=== PATIENT | female | born 1985 | race Caucasian/White ===

== ENCOUNTER 2019-10-14 19:15 | Emergency (ER) | payer BC ==
[~2019-10-14] VITALS: Ht 157.5 cm; Wt 97.5 kg
[2019-10-14] MEDS ORDERED: Cyclobenzaprine5 MG PO (21:23)
[2019-10-14] MEDS ORDERED: IBUP400 PO (21:23)
== END 2019-10-14 22:09 | disposition home or self-care (01) ==
LOC: ER 19:15
DX: M54.5 Low back pain (principal); F17.210 Nicotine dependence, cigarettes, uncomplicated; Z88.5 Allergy status to narcotic agent
CPT/HCPCS: 96372; 99283-25; J1885

== ENCOUNTER 2020-06-27 11:42 | Emergency (ER) | payer OTHER ==
[~2020-06-27] VITALS: Ht 154.9 cm; Wt 104.3 kg
[~2020-06-27 11:42] MED LIST: Cyclobenzaprine5 MG PO; IBUP400 PO
== END 2020-06-27 13:15 | disposition home or self-care (01) ==
LOC: ER 11:42
DX: S61.012A Laceration without foreign body of left thumb without damage to nail, initial encounter (principal); Z23 Encounter for immunization; Z88.5 Allergy status to narcotic agent; Z79.899 Other long term (current) drug therapy; W26.8XXA Contact with other sharp object(s), not elsewhere classified, initial encounter
CPT/HCPCS: 12001; 90471; 90714; 99282-25

== ENCOUNTER 2020-08-24 11:15 | Emergency (ER) | payer OTHER ==
[~2020-08-24] VITALS: Ht 154.9 cm; Wt 104.3 kg
[2020-08-24 12:31] LABS: BASOPHILS ABSOLUTE AUTO 0.03 K/mm3 (0.00-0.23); BASOPHILS PERCENT AUTO 0 % (0-2); EOSINOPHILS ABSOLUTE AUTO 0.04 K/mm3 (0.00-0.68); EOSINOPHILS PERCENT AUTO 1 % (0-6); Hematocrit 43.4 % (33.0-51.0); Hemoglobin 14.4 g/dL (11.5-16.0); IMMATURE GRAN ABSOLUTE AUTO 0.02 K/mm3 (0.00-0.10); IMMATURE GRAN PERCENT AUTO 0 % (0-1); LYMPHOCYTES ABSOLUTE AUTO 1.74 K/mm3 (0.84-5.20); LYMPHOCYTES PERCENT AUTO 24 % (21-46); MONOCYTES ABSOLUTE AUTO 0.35 K/mm3 (0.16-1.47); MONOCYTES PERCENT AUTO 5 % (4-13); Mean Corpuscular HGB 29.4 pg (26.0-34.0); Mean Corpuscular HGB Conc 33.2 g/dL (31.5-36.5); Mean Corpuscular Volume 89 fL (80-100); Mean Platelet Volume 10.9 fL (9.1-12.4); NEUTROPHILS ABSOLUTE AUTO 5.03 K/mm3 (1.96-9.15); NEUTROPHILS PERCENT AUTO 70 % (41-73); Platelet Count 234 K/mm3 (150-400); RDW Coefficient Variation 14.4 % (11.7-14.2); RDW Standard Deviation 46.4 fL (35.1-46.3); White Blood Cell Count 7.21 K/mm3 (4.00-11.30)
[2020-08-24 12:42] LABS: Alanine Aminotransfer (ALT/SGP 28 U/L (12-78); Albumin, Blood 3.7 g/dL (3.4-5.0); Albumin/Globulin Ratio 0.9 (0.8-1.8); Alk Phos 79 U/L (50-136); Anion Gap 4 mmol/L (6-16); Aspartate Aminotrans (AST/SGOT 17 U/L (12-37); Bilirubin, Total 0.3 mg/dL (0.1-1.0); Blood Urea Nitrogen 10 mg/dL (8-24); Bun/Creatinine Ratio 17.2 (12.0-20.0); CO2, Blood 25 mmol/L (21-32); Calcium, Blood 8.7 mg/dL (8.5-10.1); Chloride, Blood 108 mmol/L (98-108); Creatinine, Blood 0.58 mg/dL (0.40-1.00); Globulin, Blood 3.9 g/dL (2.2-4.0); Glomerular Filtration Rate >60 (60-); Glucose, Blood 98 mg/dL (70-99); Potassium, Blood 4.2 mmol/L (3.5-5.5); Sodium, Blood 137 mmol/L (136-145); Total Protein, Blood 7.6 g/dL (6.4-8.2); Troponin I <0.015 ng/mL (0.000-0.040)
== END 2020-08-24 13:41 | disposition home or self-care (01) ==
LOC: ER 11:15
PROVIDERS: Emergency Medicine
DX: R00.2 Palpitations (principal); R07.9 Chest pain, unspecified; R42 Dizziness and giddiness; F17.200 Nicotine dependence, unspecified, uncomplicated; Z88.5 Allergy status to narcotic agent
CPT/HCPCS: 36415; 71045; 80053; 84484; 85025; 93005; 93010; 99284-25

== ENCOUNTER 2022-11-25 18:44 | Emergency (ER) | payer OTHER ==
[~2022-11-25] VITALS: Ht 154.9 cm; Wt 79.4 kg
[2022-11-25 19:47] VITALS: BP 143/109
[2022-11-26] MEDS ORDERED: HYDR1TAB94 PO (15:40)
[2022-11-26] MEDS ORDERED: LIDO700A20 TOP (15:40)
[2022-11-26] MEDS ORDERED: ONDA4 PO (15:40)
== END 2022-11-25 21:30 | disposition home or self-care (01) ==
LOC: ER 18:44
DX: R07.1 Chest pain on breathing (principal); R07.81 Pleurodynia; Z88.5 Allergy status to narcotic agent
CPT/HCPCS: 71046; J1885

== ENCOUNTER 2022-11-26 13:53 | Emergency (ER) | payer OTHER ==
[~2022-11-26] VITALS: Ht 154.9 cm; Wt 79.4 kg
[2022-11-26 14:08] VITALS: BP 156/110
[2022-11-26] MEDS ORDERED: ONDA4 PO (15:40)
[2022-11-26] MEDS ORDERED: HYDR1TAB94 PO (15:40)
[2022-11-26] MEDS ORDERED: LIDO700A20 TOP (15:40)
== END 2022-11-26 16:04 | disposition home or self-care (01) ==
LOC: ER 13:53
DX: R07.2 Precordial pain (principal); Z88.5 Allergy status to narcotic agent
CPT/HCPCS: 71101; 99283-25; A9270

== ENCOUNTER → 2023-02-08 | Outpatient (CLI) | payer OTHER ==
[~2023-02-08] MED LIST changes: +HYDR1TAB94 PO; +LIDO700A20 TOP; +ONDA4 PO
[2023-02-08 17:32] LABS: BASOPHILS ABSOLUTE AUTO 0.03 K/mm3 (0.00-0.23); BASOPHILS PERCENT AUTO 0 % (0-2); EOSINOPHILS PERCENT AUTO 0 % (0-6); Hematocrit 39.6 % (33.0-51.0); Hemoglobin 13.2 g/dL (11.5-16.0); IMMATURE GRAN ABSOLUTE AUTO 0.11 K/mm3 (0.00-0.10); IMMATURE GRAN PERCENT AUTO 1 % (0-1); LYMPHOCYTES PERCENT AUTO 4 % (21-46); MONOCYTES ABSOLUTE AUTO 1.26 K/mm3 (0.16-1.47); MONOCYTES PERCENT AUTO 7 % (4-13); Mean Corpuscular HGB 28.6 pg (26.0-34.0); Mean Corpuscular HGB Conc 33.3 g/dL (31.5-36.5); Mean Corpuscular Volume 86 fL (80-100); Mean Platelet Volume 10.2 fL (9.1-12.4); NEUTROPHILS ABSOLUTE AUTO 15.31 K/mm3 (1.96-9.15); NEUTROPHILS PERCENT AUTO 88 % (41-73); Platelet Count 200 K/mm3 (150-400); RDW Coefficient Variation 14.8 % (11.7-14.2); RDW Standard Deviation 46.5 fL (35.1-46.3); Red Blood Cell Count 4.61 M/mm3 (3.80-5.20); White Blood Cell Count 17.31 K/mm3 (4.00-11.30)
[2023-02-08 17:54] LABS: Albumin/Globulin Ratio 0.8 (0.8-1.8); Bilirubin, Total 0.4 mg/dL (0.1-1.0); Bun/Creatinine Ratio 11.2 (12.0-20.0); Creatinine, Blood 0.9 mg/dL (0.40-1.00); Globulin, Blood 3.9 g/dL (2.2-4.0); Potassium, Blood 3.4 mmol/L (3.5-5.5); Total Protein, Blood 6.9 g/dL (6.4-8.2)
== END ==
LOC: LAB 16:53 → LAB SHORT 16:53
PROVIDERS: Family Medicine
DX: N39.0 Urinary tract infection, site not specified (principal)
CPT/HCPCS: 80053; 85025; 87040; 87077; 87086; 87186

== ENCOUNTER 2023-02-09 11:37 | Inpatient (IN) | payer OTHER ==
[~2023-02-09] VITALS: Ht 157.5 cm; Wt 85.6 kg
[2023-02-09 12:26] LABS: BASOPHILS ABSOLUTE AUTO 0.01 K/mm3 (0.00-0.23); BASOPHILS PERCENT AUTO 0 % (0-2); EOSINOPHILS PERCENT AUTO 0 % (0-6); Hematocrit 35.2 % (33.0-51.0); Hemoglobin 11.8 g/dL (11.5-16.0); IMMATURE GRAN ABSOLUTE AUTO 0.04 K/mm3 (0.00-0.10); IMMATURE GRAN PERCENT AUTO 0 % (0-1); LYMPHOCYTES ABSOLUTE AUTO 0.63 K/mm3 (0.84-5.20); LYMPHOCYTES PERCENT AUTO 6 % (21-46); MONOCYTES ABSOLUTE AUTO 0.49 K/mm3 (0.16-1.47); MONOCYTES PERCENT AUTO 5 % (4-13); Mean Corpuscular HGB 29.1 pg (26.0-34.0); Mean Corpuscular HGB Conc 33.5 g/dL (31.5-36.5); Mean Corpuscular Volume 87 fL (80-100); Mean Platelet Volume 10.4 fL (9.1-12.4); NEUTROPHILS ABSOLUTE AUTO 9.69 K/mm3 (1.96-9.15); NEUTROPHILS PERCENT AUTO 89 % (41-73); Platelet Count 173 K/mm3 (150-400); RDW Coefficient Variation 14.8 % (11.7-14.2); RDW Standard Deviation 47.6 fL (35.1-46.3); Red Blood Cell Count 4.06 M/mm3 (3.80-5.20); White Blood Cell Count 10.86 K/mm3 (4.00-11.30)
[2023-02-09 12:37] LABS: Albumin, Blood 2.4 g/dL (3.4-5.0); Albumin/Globulin Ratio 0.6 (0.8-1.8); Bilirubin, Total 0.2 mg/dL (0.1-1.0); Bun/Creatinine Ratio 10.7 (12.0-20.0); Calcium, Blood 8.2 mg/dL (8.5-10.1); Creatinine, Blood 0.84 mg/dL (0.40-1.00); Globulin, Blood 3.9 g/dL (2.2-4.0); Total Protein, Blood 6.3 g/dL (6.4-8.2)
[2023-02-09 13:43] LABS: Source, Urine Clean Catch
[2023-02-09 13:46] LABS: Appearance, Urine Clear (Clear); Bilirubin, Urine Neg (Neg); Blood, Urine 2+ (Neg); Color, Urine Amber (P-Yellow); Glucose Qualitative, Urine 3+ (Neg); Ketones, Urine Neg (Neg); Leukocyte Esterase, Urine 1+ (Neg); Nitrite, Urine Neg (Neg); Protein, Urine 2+ (Neg); Specific Gravity, Urine 1.015 (1.003-1.022); Urobilinogen, Urine NORM (Normal); pH, Urine 6.5 (5.0-8.0)
[2023-02-09 14:03] LABS: Bacteria Many /hpf; Mucus Light (0-Heavy); Renal Epithelial Rare /hpf (0-Rare); Squamous Epithelial Cells Mod /hpf (Few); Transitional Epithelial Cells Rare /hpf (0-Rare); White Blood Cells, Urine 25-50 /hpf (0-5)
[2023-02-09 15:12] LABS: Influenza A, PCR NEGATIVE (NEGATIVE); Influenza B, PCR NEGATIVE (NEGATIVE); Resp Syncytial Virus, PCR NEGATIVE (NEGATIVE); SARS-Cov-2 (COVID-19) PCR, MMC NEGATIVE (NEGATIVE)
[2023-02-09 17:11] LABS: International Normalized Ratio 1.01; Prothrombin Time Results 10.6 Sec (9.7-11.5)
[2023-02-09 17:19] LABS: Albumin, Blood 2.4 g/dL (3.4-5.0); Albumin/Globulin Ratio 0.7 (0.8-1.8); Bilirubin, Direct 0.1 mg/dL (0.0-0.3); Bilirubin, Indirect 0.1 mg/dL (0.1-0.7); Bilirubin, Total 0.2 mg/dL (0.1-1.0); Globulin, Blood 3.5 g/dL (2.2-4.0); Magnesium, Blood 1.6 mg/dL (1.6-2.4); Phosphorus, Blood 1.9 mg/dL (2.5-4.9); Total Protein, Blood 5.9 g/dL (6.4-8.2)
[2023-02-09 19:20] LABS: U Amphetamine Screen DETECTED; U Barbituate Screen Not Detected; U Benzodiazapine Screen Not Detected; U Buprenorphine Screen Not Detected; U Cannabinoids Screen DETECTED; U Cocaine Screen Not Detected; U Methadone Screen Not Detected; U Methamphetamine Screen DETECTED; U Opiates Screen Not Detected; U Oxycodone Screen Not Detected; U Phencyclidine Screen Not Detected; U Propoxyphene Screen Not Detected
--- NOTE | 2023-02-09 19:56 | NUR ---
PT CHART REVIEWED FOR ADMIT
[2023-02-09 21:20] VITALS: BP 146/78
[2023-02-10 04:25] VITALS: BP 145/83
[2023-02-10 05:18] LABS: Hematocrit 30.4 % (33.0-51.0); Hemoglobin 10.4 g/dL (11.5-16.0); Mean Corpuscular HGB 29.1 pg (26.0-34.0); Mean Corpuscular HGB Conc 34.2 g/dL (31.5-36.5); Mean Corpuscular Volume 85 fL (80-100); Mean Platelet Volume 10.9 fL (9.1-12.4); Platelet Count 158 K/mm3 (150-400); RDW Coefficient Variation 14.7 % (11.7-14.2); Red Blood Cell Count 3.58 M/mm3 (3.80-5.20)
[2023-02-10 05:43] LABS: BAND PERCENT MAN 1 % (0-8); BASOPHILS ABSOLUTE MAN 0.05 K/mm3 (0.00-0.23); BASOPHILS PERCENT MAN 1 % (0-2); EOSINOPHILS PERCENT MAN 0 % (0-6); LYMPHOCYTES ABSOLUTE MAN 0.66 K/mm3 (0.84-5.20); LYMPHOCYTES PERCENT MAN 13 % (21-46); MONOCYTES ABSOLUTE MAN 0.51 K/mm3 (0.16-1.47); MONOCYTES PERCENT MAN 10 % (4-13); NEUTROPHILS ABSOLUTE MAN 3.87 K/mm3 (1.96-9.15); SEG NEUTROPHILS PERCENT MAN 75 % (41-73); TOTAL CELLS COUNTED 100
--- NOTE | 2023-02-10 05:49 | NUR ---
EOS NOTE: PATIENT ARRIVED TO THE FLOOR APPROX 2044, PATIENT IS PLEASANT AND COOPERATIVE A/OX4, INDEPENDENT IN THE ROOM, COMPLAINS OF SLIGHT PAIN TO ABD & FLANKS. VSS, WILL CONTINUE TO MONITOR. SPOUSE, WINTER, WAS UPSET THAT VISITING HOURS ENDED AT 7PM AND WAS CURSING STAFF ON THE PHONE. PATIENT PULLED HER PHONE AWAY AND TOOK HIM OFF SPEAKER PHONE HE CONTINUED TO YELL AND CURSE AT STAFF. SECURITY AWARE. SPOUSE, WINTER, WAS SITTING IN ED WAITING ROOM FOR 7AM VISITING HOURS TO START AGAIN. SECURITY ASKED WINTER TO LEAVE THE BUILDING UNTIL VISITING HOURS START AGAIN AT 7AM. PATIENT ALSO EDUCATED ON SPOUSE TALKING TO STAFF APPROPRIATELY. PATIENT EXPRESSES NO RECENT HISTORY OF DOMESTIC ABUSE.
[2023-02-10 05:51] LABS: Bun/Creatinine Ratio 6.2 (12.0-20.0); Calcium, Blood 7.9 mg/dL (8.5-10.1); Creatinine, Blood 0.64 mg/dL (0.40-1.00); Magnesium, Blood 1.6 mg/dL (1.6-2.4); Phosphorus, Blood 1.9 mg/dL (2.5-4.9); Potassium, Blood 3.2 mmol/L (3.5-5.5)
[2023-02-10 08:08] VITALS: BP 154/86
--- NOTE | 2023-02-10 17:48 | NUR ---
SHIFT NOTE PT RESTING WITH DAUGHTER AT BEDSIDE. IVF KPHOS INFUSING. PT TOOK A SHOWER. MEDICATD FOR PAIN THIS MORNING. NO FURTHER COMPLAINTS. SHE SLEPT MOST OF THE AFTERNOON. RA. UP AD CLAUDIA. CONTINUE POC.
[2023-02-10 20:18] VITALS: BP 136/93
[2023-02-11 01:04] VITALS: BP 163/91
[2023-02-11 03:06] VITALS: BP 144/85
--- NOTE | 2023-02-11 05:10 | NUR ---
SHIFT SUMMARY 37 YR F ADMITTED ON 02/09/23 FOR PYELONEPHRITIS/SEPSIS. FULL CODE. NO ACUTE CHANGES THIS SHIFT. PT C/O NOT FEELING WELL AND STATED THAT SHE THOUGHT SHE HAD A FEVER. VITALS WERE TAKEN AND TEMP WAS 99.6. SHE WAS GIVEN TYLENOL PER EMAR AND A COUPLE OF HOURS LATER PT STATED THAT SHE FELT BETTER. SHE EXPRESSED THAT SHE IS UPSET THAT HER WAS NOT ALLOWED TO COME SEE HER AND THAT SHE DIDN'T THINK IT WAS RIGHT. SHE HAD NO C/O PAIN THIS SHIFT.
[2023-02-11 07:27] LABS: Bun/Creatinine Ratio 6.6 (12.0-20.0); Calcium, Blood 7.8 mg/dL (8.5-10.1); Creatinine, Blood 0.75 mg/dL (0.40-1.00); Phosphorus, Blood 3.6 mg/dL (2.5-4.9); Potassium, Blood 3.6 mmol/L (3.5-5.5)
[2023-02-11 08:18] VITALS: BP 131/90
--- NOTE | 2023-02-11 14:34 | NUR ---
DISCHARGE/ AMA SUMMARY PATIENT IS ALERT AND ORIENTED. PATIENT HAS HAD MANY SOCIAL ISSUES GOING ON THROUGHOUT SHIFT. PATIENT IS TEARFUL AND ANXIOUS ABOUT AND LIVING SITUATION. THIS RN CALLED DR DE SOUZA ABOUT PATIENT LEAVING AMA. PUT IN DISCHARGE ORDERS. PATIENT WAS NOT ABLE TO STAY UNTIL DISCHARGE PAPERWORK WAS PRINTED. PATIENT WAS READ DISCHARGE MEDICATION INSTRUCTIONS BY RN AND DR DE SOUZA WITNESSING. PATIENT MEDICATIONS FAXED TO PATIENTS PHARMACY OF CHOICE.- [facility].
== END 2023-02-11 14:40 | disposition left against medical advice (07) | DRG 872 ==
LOC: ER 11:37 → MEDS 20:16
PROVIDERS: Emergency Medicine; Internal Medicine; Nurse Practitioner Acute Care; Physician Assistant; ADMIT Internal Medicine
DX: A41.51 Sepsis due to Escherichia coli [E. coli] (principal); N10 Acute pyelonephritis; E87.20 Acidosis, unspecified; R65.20 Severe sepsis without septic shock; F15.10 Other stimulant abuse, uncomplicated; E87.6 Hypokalemia; E83.39 Other disorders of phosphorus metabolism; Z20.822 Contact with and (suspected) exposure to COVID-19; B95.7 Other staphylococcus as the cause of diseases classified elsewhere; F17.210 Nicotine dependence, cigarettes, uncomplicated; Z88.5 Allergy status to narcotic agent; Z87.440 Personal history of urinary (tract) infections; Z71.51 Drug abuse counseling and surveillance of drug abuser
CPT/HCPCS: 0241U; 36415; 74177; 80048; 80053; 81001; 82248; 83605; 83735; 84100; 85025; 85610; 85730; 87040; 87077; 87086; 87186; 87491; 87591; 93005; 93010; 96361; 96365-59; 96375; 99285-25; A9270; J0696; J1650; J7030; J7040; J7060; J7120; Q9967

== ENCOUNTER 2023-07-03 20:03 | Emergency (ER) | payer OTHER ==
[~2023-07-03] VITALS: Ht 154.9 cm; Wt 70.3 kg
[2023-07-03] MEDS ORDERED: IBUP200 PO (20:16)
[2023-07-03 23:12] VITALS: BP 175/105
[2023-07-03] MEDS ORDERED: AMOCLA875 PO (23:29)
== END 2023-07-03 23:51 | disposition home or self-care (01) ==
LOC: ER 20:03
DX: S51.052A Open bite, left elbow, initial encounter (principal); W54.0XXA Bitten by dog, initial encounter; Z88.5 Allergy status to narcotic agent; Z79.899 Other long term (current) drug therapy
CPT/HCPCS: 73080; 90471; 90714; 96372; 99283-25; A9270; J1885